=== PATIENT | female | born 1955 | race Caucasian/White ===

== ENCOUNTER → 2016-09-14 | Outpatient (CLI) | payer BC ==
--- NOTE | 2016-09-16 07:38 | MM ---
Reason for exam: screening (asymptomatic). Last mammogram was performed 1 year and 3 months ago. History: Patient is postmenopausal. Physical Findings: A clinical breast exam by your physician is recommended on an annual basis and results should be correlated with mammographic findings. MG 3D Screening Mammo W/Cad Bilateral CC and MLO view(s) were taken. Prior study comparison: June 26, 2015, bilateral MG 3d screening mammo w/cad. April 02, 2014, mammogram, performed at [facility]. February 28, 2013, mammogram, performed at [facility]. There are scattered fibroglandular densities. No significant changes when compared with prior studies. ASSESSMENT: Negative, BI-RAD 1 RECOMMENDATION: Routine screening mammogram of both breasts in 1 year.
== END | disposition home or self-care (01) ==
LOC: RADMAMWWP 14:17
PROVIDERS: ATTEND Internal Medicine
DX: Z12.31 Encounter for screening mammogram for malignant neoplasm of breast (principal)
CPT/HCPCS: 77063; G0202

== ENCOUNTER → 2019-06-11 | Outpatient (CLI) | payer MEDICARE, OTHER ==
--- NOTE | 2019-06-11 14:15 | NM ---
EXAMINATION TYPE: NM stress lexiscan cardiolite DATE OF EXAM: 06/11/2019 COMPARISON: NONE HISTORY: Chest pain TECHNIQUE: After the intravenous administration of 9.84 mCi Tc 99m Sestamibi - Cardiolite resting SP ECT images acquired 45 minutes post injection. The patient received 0.4mg Lexiscan, 26.2 mCi Tc 99m Sestamibi - Stress images obtained [address] injection FINDINGS: Review of stress and rest SPECT images demonstrates mild decreased uptake along the anteroseptal left ventricle on stress as compared to rest images. Gated analysis shows normal wall motion with an est imated left ventricular ejection fraction of 62 %. IMPRESSION: Pharmacologically induced left ventricular myocardial ischemia. Results relayed to the referring clin ic at the time of interpretation to
--- NOTE | 2019-06-12 10:58 | EST ---
EXERCISE STRESS AGE: 64 SEX: F HT: 62" WT: 181 PROTOCOL: Lexiscan Cardiolite Stress Test HEART RATE REST: 72 BLOOD PRESSURE REST: 126/74 MAXIMUM HEART RATE ACHIEVED: 106 MAXIMUM BLOOD PRESSURE: 154/73 INDICATIONS: Chest pain. CLINICAL INFORMATION: Baseline EKG shows sinus rhythm, normal axis, normal intervals. Patient was given intravenous Lexiscan as per protocol. Did not have chest pain or diagnostic ST-segment depression. CONCLUSION: 1. Negative stress test by EKG criteria. 2. Cardiolite portion of the stress test will be reported separately. MMODL / IJN: [id number] /
== END | disposition home or self-care (01) ==
LOC: RADNMMAIN 08:40
PROVIDERS: ATTEND Internal Medicine Endocrinology, Diabetes & Metabolism
DX: I25.9 Chronic ischemic heart disease, unspecified (principal); E11.65 Type 2 diabetes mellitus with hyperglycemia; E11.21 Type 2 diabetes mellitus with diabetic nephropathy; R10.13 Epigastric pain
CPT/HCPCS: 93017; 78452; A9500

== ENCOUNTER 2023-02-17 04:42 | Emergency (ER) | payer MEDICARE, OTHER ==
[2023-02-17 05:13] LABS: Basophils % (A) 0 %; Eosinophils # (A) 0.1 k/uL (0-0.7); Eosinophils % (A) 1 %; HCT 35.4 % (34.0-46.0); HGB 12.4 gm/dL (11.4-16.0); Lymphocytes # (A) 0.3 k/uL (1.0-4.8); Lymphocytes % (A) 3 %; MCH 32.2 pg (25.0-35.0); MCHC 35.1 g/dL (31.0-37.0); MCV 91.8 fL (80.0-100.0); Monocytes # (A) 0.3 k/uL (0-1.0); Monocytes % (A) 3 %; Neutrophils # (A) 8.9 k/uL (1.3-7.7); Neutrophils % (A) 92 %; Platelet Count 150 k/uL (150-450); RBC 3.86 m/uL (3.80-5.40); RDW 13.2 % (11.5-15.5); WBC 9.7 k/uL (3.8-10.6)
[2023-02-17 05:40] LABS: ALT 305 U/L (4-34); African American GFR (CKD) >90 (>60 ml/min/1.73 sqM); Albumin 4.5 g/dL (3.5-5.0); Alkaline Phosphatase 159 U/L (38-126); Amylase 58 U/L (30-110); Anion Gap 10 mmol/L; Blood Urea Nitrogen 7 mg/dL (7-17); Calcium 9.3 mg/dL (8.4-10.2); Carbon Dioxide 23 mmol/L (22-30); Chloride 107 mmol/L (98-107); Glucose 198 mg/dL (74-99); Lipase 562 U/L (23-300); Non-African American GFR(CKD) >90 (>60 ml/min/1.73 sqM); Potassium 3.7 mmol/L (3.5-5.1); Sodium 140 mmol/L (137-145); Total Protein 7.1 g/dL (6.3-8.2)
[2023-02-17 05:57] LABS: AST 993 U/L (14-36)
--- NOTE | 2023-02-17 07:21 | ED ---
General Adult HPI - General Chief complaint: Abdominal Pain Stated complaint: ABD Pain Time Seen by Provider: 02/17/23 07:14 Source: patient, RN notes reviewed, old records reviewed Mode of arrival: EMS Limitations: no limitations - History of Present Illness Initial comments: Patient had a routine colonscopy with Sam Caba yesterday. No complications and states was normal, no polyps. Woke up at midnight with dull epigastric pain. No fevers. No chest pain or difficulty breathing. Did vomit once this morning, undigested foot that she ate prior to going to bed. Pain 8 out of 10 after given fentanyl and zofran by EMS. States has a history of diabetes, hyperlipidemia, hypertension -: hour(s) (7) Location: abdomen (epigastric) Severity scale (1-10): 9 Consistency: constant Associated Symptoms: nausea/vomiting (once, a little bit of food that she ate before bed) Treatments Prior to Arrival: other (fentanyl by EMS with zofran) - Related Data Previous Rx's Medication Instructions Recorded Famotidine [Pepcid] 20 mg PO BID #28 tablet 02/17/23 Allergies Allergy/AdvReac Type Severity Reaction Status Date / Time diltiazem [From Cardizem] Allergy Rash/Hives Verified 02/17/23 04:45 Sulfa (Sulfonamide Allergy Nausea & Verified 02/17/23 04:45 Antibiotics) Vomiting Review of Systems ROS Statement: Those systems with pertinent positive or pertinent negative responses have been documented in the HPI. ROS Other: All systems not noted in ROS Statement are negative. Past Medical History Past Medical History: Diabetes Mellitus, Hyperlipidemia, Hypertension, Thyroid Disorder History of Any Multi-Drug Resistant Organisms: None Reported Past Surgical History: Tonsillectomy, Tubal Ligation Past Psychological History: No Psychological Hx Reported Smoking Status: Never smoker Past Alcohol Use History: Daily Past Drug Use History: None Reported General Exam Limitations: no limitations General appearance: alert, in no apparent distress Head exam: Present: atraumatic Eye exam: Present: normal appearance. Absent: scleral icterus, conjunctival injection, periorbital swelling ENT exam: Present: mucous membranes moist Neck exam: Present: full ROM. Absent: tenderness, meningismus, lymphadenopathy Respiratory exam: Present: normal lung sounds bilaterally. Absent: respiratory distress, accessory muscle use Cardiovascular Exam: Present: regular rate GI/Abdominal exam: Present: soft. Absent: distended, tenderness, guarding, rebound, rigid Extremities exam: Present: normal inspection, normal capillary refill. Absent: pedal edema Neurological exam: Present: alert, oriented X3 Psychiatric exam: Present: normal affect, normal mood Skin exam: Present: warm, dry, normal color. Absent: cyanosis, diaphoretic Course Vital Signs 02/17/23 02/17/23 04:46 08:05 Temperature 98.3 F 98.8 F Pulse Rate 64 82 Respiratory 18 16 Rate Blood Pressure 160/91 165/86 O2 Sat by Pulse 98 97 Oximetry Medical Decision Making - Medical Decision Making Was pt. sent in by a medical professional or institution (, PA, [employer], urgent care, hospital, or [place] health care facility...) When possible be specific @ -No Did you speak to anyone other than the patient for history (EMS, parent, family, police, friend...)? What history was obtained from this source @ -No Did you review nursing and triage notes (agree or disagree)? Why? @ -I reviewed and agree with nursing and triage notes Were old charts reviewed (outside hosp., previous admission, EMS record, old EKG, old radiological studies, urgent care reports/EKG's, [place] health care facility records)? Report findings @ -No old charts were reviewed Differential Diagnosis (chest pain, altered mental status, abdominal pain women, abdominal pain men, vaginal bleeding, weakness, fever, dyspnea, syncope, headache, dizziness, GI bleed, back pain, seizure, CVA, palpatations, mental health, musculoskeletal)? @ -Differential Abdominal Pain Women: Appendicitis, Cholecystitis, diverticulosis, ischemic bowel, pancreatitis, hepatitis, UTI, gastroenteritis, AAA, incarcerated hernia, bowel obstruction, constipation, inflammatory bowel, hepatitis, peptic ulcer disease, splenic infarction, perforated viscus, vulvitis, ovarian torsion, PID, kidney stone, placenta abruption, this is not meant to be an all-inclusive list EKG interpreted by me (3pts min.). @ -n/a X-rays interpreted by me (1pt min.). @ -None done CT interpreted by me (1pt min.). @ -no U/S interpreted by me (1pt. min.). @ -None done What testing was considered but not performed or refused? (CT, X-rays, U/S, labs)? Why? @ -None What meds were considered but not given or refused? Why? @ -None Did you discuss the management of the patient with other professionals (professionals i.e. , PA, [employer], lab, RT, psych nurse, social service agency director, ceramic capacitor processor, teacher, dental officer, case management coordinator)? Give summary @ -No Was smoking cessation discussed for >3mins.? @ -No Was critical care preformed (if so, how long)? @ -No Were there social determinants of health that impacted care today? How? (Homelessness, low income, unemployed, alcoholism, drug addiction, transportation, low edu. Level, literacy, decrease access to med. care, nursing home, rehab)? @ -No Was there de-escalation of care discussed even if they declined (Discuss DNR or withdrawal of care, Hospice)? DNR status @ -No What co-morbidities impacted this encounter? (DM, HTN, Smoking, COPD, CAD, Cancer, CVA, ARF, Chemo, Hep., AIDS, mental health diagnosis, sleep apnea, morbid obesity)? @ -diabetes, hyperlipidemia, hypertension Was patient admitted / discharged? Hospital course, mention meds given and route, prescriptions, significant lab abnormalities, going to OR and other pertinent info. @ -Discharged Patient had a routine colonscopy with Sam Caba [facility] yesterday. No complications and states was normal, no polyps. Woke up at midnight with dull e pigastric pain. No fevers. No chest pain or difficulty breathing. Did vomit once this morning, undigested foot that she ate prior to going to bed. Pain 8 out of 10 after given fentanyl and zofran by EMS. Patient afebrile. Vital signs are stable. Abdomen is soft and minimally tender diffusely on exam. Denies any dyspnea. No chest pain. Labs show no evidence of LEUKOCYTOSIS. AST 993, ALT 305, ALK PHOS 159, LIPASE 562. CT abdomen and pelvis shows fold thickening within the gastric body may be due to nondistention versus gastritis. Sigmoid diverticulosis without evidence of diverticulitis. Fibroid uterus. Mass along the left posterior lower uterine segment of the uterus measuring 4.6 cm which can also be assessed on ultrasound. Suspect partially subserosal focal fibroid. Patient was notified of her results and directed to follow up regarding uterine mass. She was given fentanyl and Pepcid for her discomfort in the emergency room. EMS did give her Toradol and Zofran prior to arrival. Patient does admit to having 2 beers a night daily. No previous history of pancreatitis. She was instructed to stop drinking and follow up with her primary care doctor for reevaluation of her labs. She is agreeable to this plan of care. Case discussed with Dr. Mora Undiagnosed new problem with uncertain prognosis? @ -No Drug Therapy requiring intensive monitoring for toxicity (Heparin, Nitro, Insulin, Cardizem)? @ -No Were any procedures done? @ -No Diagnosis/symptom? @ -Abdominal pain, gastritis Acute, or Chronic, or Acute on Chronic? @ -Acute Uncomplicated (without systemic symptoms) or Complicated (systemic symptoms)? @ -Uncomplicated Side effects of treatment? @ -No Exacerbation, Progression, or Severe Exacerbation? @ -No Poses a threat to life or bodily function? How? (Chest pain, USA, VT, pneumonia, PE, COPD, DKA, ARF, appy, cholecystitis, CVA, Diverticulitis, Homicidal, Suicidal, threat to staff... and all critical care pts) @ -No - Lab Data Result diagrams: 02/17/23 05:03 02/17/23 05:03 Lab Results 02/17/23 02/17/23 02/17/23 Range/Units 05:03 05:03 05:03 WBC 9.7 (3.8-10.6) k/uL RBC 3.86 (3.80-5.40) m/uL Hgb 12.4 (11.4-16.0) gm/dL Hct 35.4 (34.0-46.0) % MCV 91.8 (80.0-100.0) fL MCH 32.2 (25.0-35.0) pg MCHC 35.1 (31.0-37.0) g/dL RDW 13.2 (11.5-15.5) % Plt Count 150 (150-450) k/uL MPV 8.0 Neutrophils % 92 % Lymphocytes % 3 % Monocytes % 3 % Eosinophils % 1 % Basophils % 0 % Neutrophils # 8.9 H (1.3-7.7) k/uL Lymphocytes # 0.3 L (1.0-4.8) k/uL Monocytes # 0.3 (0-1.0) k/uL Eosinophils # 0.1 (0-0.7) k/uL Basophils # 0.0 (0-0.2) k/uL Sodium 140 (137-145) mmol/L Potassium 3.7 (3.5-5.1) mmol/L Chloride 107 (98-107) mmol/L Carbon Dioxide 23 (22-30) mmol/L Anion Gap 10 mmol/L BUN 7 (7-17) mg/dL Creatinine 0.32 L (0.52-1.04) mg/dL Est GFR (CKD-EPI)AfAm >90 (>60 ml/min/1.73 sqM) Est GFR (CKD-EPI)NonAf >90 (>60 ml/min/1.73 sqM) Glucose 198 H (74-99) mg/dL Plasma Lactic Acid Stevenson 2.0 (0.7-2.0) mmol/L Calcium 9.3 (8.4-10.2) mg/dL Total Bilirubin 1.0 (0.2-1.3) mg/dL AST 993 H (14-36) U/L ALT 305 H (4-34) U/L Alkaline Phosphatase 159 H (38-126) U/L Total Protein 7.1 (6.3-8.2) g/dL Albumin 4.5 (3.5-5.0) g/dL Amylase 58 (30-110) U/L Lipase 562 H (23-300) U/L Disposition Clinical Impression: Gastritis Disposition: HOME SELF-CARE Condition: Good Instructions (If sedation given, give patient instructions): Gastritis (ED) Additional Instructions: Take Pepcid twice a day. Follow-up with the primary care doctor. Discussed with your doctor the elevation in your liver enzymes. Also discuss your CT scan results of concerning fibroid within uterus. Stop drinking alcohol. Prescriptions: Famotidine [Pepcid] 20 mg PO BID #28 tablet Is patient prescribed a controlled substance at d/c from ED?: No Referrals: Lizett Shaikh DO [Primary Care Provider] - 1-2 days Time of Disposition: 08:20
[2023-02-17] MEDS ORDERED: fentaNYL (PF) 50 MCG/ML 2 ML AMP IVP STA (07:50)
--- NOTE | 2023-02-17 08:06 | CT ---
EXAMINATION TYPE: CT abdomen pelvis w con DATE OF EXAM: 02/17/2023 COMPARISON: NONE HISTORY: Right upper quadrant abdominal pain and vomiting. TECHNIQUE: Contiguous axial scanning of the abdomen and pelvis following administration of 100 ml Omn ipaque 300 IV contrast. Delayed images through the kidneys and coronal/sagittal reconstructions perf ormed. CT DLP: 956.3 mGycm Automated exposure control for dose reduction was used. FINDINGS: LUNG BASES: No significant abnormality is appreciated. LIVER/GB: Periportal edema suggesting aggressive fluid hydration. Portal venous system is patent. No biliary ductal dilatation. Gallbladder is collapsed. Otherwise, no significant abnormality is appreci ated. PANCREAS: No significant abnormality is seen. SPLEEN: No significant abnormality is seen. ADRENALS: No significant abnormality is seen. KIDNEYS: No significant abnormality is seen. BOWEL: There may be some gastric mucosal hyperemia at the level of the gastric body with accompanying fold thickening. Normal appendix. No dilated small bowel, free fluid, or free air. No significant st ool burden. There is left-sided colonic diverticulosis, greatest along the proximal to mid sigmoid co deuce. No definite pericolonic inflammatory changes seen. LYMPH NODES: No suspicious greater than 1 cm lymph node is identified. OTHER: No significant abnormality is identified. PELVIS: Bladder urine distended. Fibroid uterus with small calcified fibroids measuring up to 1.7 cm. Possible prominent endometrium on the fundal aspect of the uterus, axial image 62 and sagittal image 78. In addition, there is a left posterior mass involving the lower uterine segment, partially subse amina measuring up to 4.6 cm, axial image 5 and sagittal image 81. Small bilateral ovaries. No abnorm al fluid collection in the pelvis or pelvic lymphadenopathy. Bones: DISH within the lower thoracic spine. Scattered [id number] degenerative disc disease in the lumbar spine. Hypertrophic facet arthropathy throughout the lumbar spine. IMPRESSION: 1. FOLD THICKENING WITHIN THE GASTRIC BODY MAY BE DUE TO NONDISTENTION VERSUS GASTRITIS. 2. SIGMOID DIVERTICULOSIS WITHOUT EVIDENCE FOR ACUTE DIVERTICULITIS. 3. FIBROID UTERUS. CENTRAL PROMINENCE TO THE FUNDAL ENDOMETRIUM COULD REFLECT A SUBMUCOSAL FIBROID. R ECOMMEND OUTPATIENT PELVIC ULTRASOUND FOLLOW-UP TO EXCLUDE ABNORMAL ENDOMETRIAL STRIPE THICKENING IN A POSTMENOPAUSAL FEMALE. IN ADDITION, THERE IS A MASS ALONG THE LEFT POSTERIOR LOWER UTERINE SEGMENT OF THE UTERUS MEASURING UP TO 4.6 CM WHICH CAN ALSO BE ASSESSED BY THE ULTRASOUND EXAM. SUSPECT A PAR TIALLY SUBSEROSAL FOCAL FIBROID.
[2023-02-17 08:12] VITALS: BP 165/86; PULSE 82; RESP 16; TEMP 98.8
[2023-02-17] MEDS ORDERED: FAMOTIDINE 20 MG/2 ML VIAL IV STA (08:18)
== END 2023-02-17 08:36 | disposition home or self-care (01) ==
LOC: EC 04:42
DX: K29.70 Gastritis, unspecified, without bleeding (principal); K57.30 Diverticulosis of large intestine without perforation or abscess without bleeding; D25.9 Leiomyoma of uterus, unspecified; E11.9 Type 2 diabetes mellitus without complications; I10 Essential (primary) hypertension; Z88.2 Allergy status to sulfonamides; Z88.8 Allergy status to other drugs, medicaments and biological substances
CPT/HCPCS: 36415; 80053; 82150; 83605; 83690; 85025; 74177; 99285; 96374; 96375; J3010; Q9967

== ENCOUNTER → 2023-08-27 | Outpatient (CLI) | payer MEDICARE, OTHER | END | disposition home or self-care (01) | LOC: LABWHC1 09:36 | PROVIDERS: ATTEND Obstetrics & Gynecology Gynecologic Oncology | DX: R19.00 Intra-abdominal and pelvic swelling, mass and lump, unspecified site (principal) | CPT/HCPCS: 36415; 86304 ==